=== PATIENT | male | born 1980 | race Caucasian/White ===

== ENCOUNTER → 2022-04-18 | Outpatient (CLI) | payer BC | LOC: EXRD 03-25 13:00 | DX: N50.811 Right testicular pain (principal); N50.812 Left testicular pain; R93.811 Abnormal radiologic findings on diagnostic imaging of right testicle; N43.3 Hydrocele, unspecified | CPT/HCPCS: 76870 ==

== ENCOUNTER → 2022-04-29 | Outpatient (CLI) | payer BC | LOC: LAB 11:04 | DX: D49.59 Neoplasm of unspecified behavior of other genitourinary organ (principal) | CPT/HCPCS: 36415; 82105; 83615; 84702 ==